=== PATIENT | male | born 1980 | race Caucasian/White ===

== ENCOUNTER 2017-04-07 07:00 | Emergency (ER) | payer BC ==
[2017-04-07] MEDS ORDERED: ASPIRIN 325 MG TABLET PO ONE (07:08)
--- NOTE | 2017-04-07 07:08 | Emergency Department Record ---
History of Present Illness - General Stated Complaint: CHEST PAIN Time Seen by Provider: 04/07/17 07:01 Source: Patient Mode of Arrival: Ambulatory Limitations: No limitations - History of Present Illness Initial Comments: 37 yo male presents with right sided chest pain that started around 11pm last night. He has had a recent cough that is non productive. The cough has been present for 3 days. The pain on the right side is worse with cough, moving, deep breaths. The pain does not radiate. It is worse with pushing on the area or reaching with his arms. If he sits very still the pain is improved. He denies and PMHx. No immediate family history of CAD or PE. No PCP MD Complaint: Chest pain -: Hour(s) (8) Onset: During rest Pain Location: Right chest Pain Radiation: None Severity scale (1-10): 8 Quality: Sharp Consistency: Constant Improves With: Remaining still Worsens With: Inspiration, Movement, Palpation Context: Recent illness (Cough) Other Symptoms: Cough - Related Data Previous Rx's Medication Instructions Recorded Ibuprofen [Motrin 600Mg] 600 mg PO Q8H #20 tablet 04/07/17 Allergies Allergy/AdvReac Type Severity Reaction Status Date / Time diphenhydramine Allergy HIVES Verified 04/07/17 07:08 [From Benadryl] Penicillins Allergy HIVES Verified 04/07/17 07:08 Review of Systems Constitutional: Denies: Chills, Fever, Malaise, Weakness Eyes: Denies: Eye discharge ENT: Denies: Congestion, Ear pain, Hearing loss, Throat pain Respiratory: Reports: Cough. Denies: Dyspnea, Hemoptysis, Stridor, Wheezes Cardiovascular: Reports: Chest pain. Denies: Palpitations, Syncope Endocrine: Denies: Fatigue Gastrointestinal: Denies: Abdominal pain, Diarrhea, Nausea, Vomiting Genitourinary: Denies: Dysuria, Frequency, Hematuria Musculoskeletal: Denies: Arthralgia, Back pain, Joint swelling, Myalgia, Neck pain Skin: Denies: Bruising, Change in color Neurological: Denies: Headache, Numbness, Weakness Psychiatric: Denies: Anxiety Hematological/Lymphatic: Denies: Blood Clots, Easy bleeding, Easy bruising, Swollen glands Physical Exam - General General Appearance: Alert, Oriented x3, Cooperative, No acute distress Limitations: No limitations - Head Head exam: Normal inspection - Eye Eye exam: Normal appearance. negative: Conjunctival injection - ENT ENT exam: Normal exam, Mucous membranes moist Ear exam: Normal external inspection Nasal Exam: Normal inspection Mouth exam: Normal external inspection - Neck Neck exam: Normal inspection, Full ROM. negative: Tenderness - Respiratory Respiratory exam: Normal lung sounds bilaterally, Chest wall tenderness (tender right parasternal area with palpation, reproduces easily). negative: Accessory muscle use, Decreased breath sounds, Respiratory distress, Rhonchi, Stridor, Wheezes - Cardiovascular Cardiovascular Exam: Regular rate, Normal rhythm, Normal heart sounds Peripheral Pulses: 2+: Radial (R), Radial (L) - GI/Abdominal GI/Abdominal exam: Soft. negative: Tenderness - Rectal Rectal exam: Deferred - exam: Deferred - Extremities Extremities exam: Normal inspection, Full ROM, Normal capillary refill. negative: Pedal edema, Tenderness - Back Back exam: Reports: Normal inspection, Full ROM. Denies: Muscle spasm, Rash noted, Tenderness Image of Body Front/Back: 1 - right parasternal is very tender to palpation, left side is non tender. the right side hurts wtih any moving of the right arm, no pain is moves with the left arm. - Neurological Neurological exam: Alert, Normal gait, Oriented X3 - Psychiatric Psychiatric exam: Normal affect, Normal mood. negative: Agitated, Anxious - Skin Skin exam: Dry, Intact, Normal color, Warm Course - Reevaluation(s) Reevaluation #1: EKG NSR rate 59, intervals normal, axis normal, ST NS negative T wave in V1-V2, no ST elevation or depression. No old EKG findings are non specific for tall thin male The patient has pain with breathing, moving, coughing, or any palpation of a very specific point tender area. 04/07/17 07:12 Reevaluation #2: The CBC,CMP,Troponin,D-Dimer, CRP were reviewed. No acute changes on the labs. 04/07/17 07:43 The CXR was read as no acute cardio pulmonary disease 04/07/17 07:59 ESR is negative at 2. 04/07/17 08:00 On recheck the patient is doing much better The pain is still completely reproducible. I can locate the tender area to the right parasternal rib over 2-3 ribs with point tenderness and no point tenderness on the ribs above or below the tender ribs. 04/07/17 08:34 The repeat Troponin is negative for pain that started last night, is very reproducible and atypical DC home with instructions for follow up and reasons to return to the ED 04/07/17 11:01 Reevaluation #3: At DC the pain is still reproducible on palpation consistent with musculo- skeletal in etiology. 04/07/17 11:04 Medical Decision Making - Lab Data Result diagrams: 04/07/17 07:05 04/07/17 07:05 Disposition Disposition: Discharge Clinical Impression: Chest wall pain Disposition: Home, Self-Care Condition: (1) Good Instructions: Chest Pain (ED), Chest Wall Pain (ED) Additional Instructions: Return if worse, short of breath, cough becomes productive or fevers Take motrin every 6 hours for the pain See your doctor for a recheck or return to the ED Prescriptions: Ibuprofen [Motrin 600Mg] 600 mg PO Q8H #20 tablet Time of Disposition: 11:04 Quality - Quality Measures Quality Measures: N/A - Blood Pressure Screening Does Patient Have Any of the Following: No Blood Pressure Classification: Hypertensive Reading Systolic Measurement: 130 Diastolic Measurement: 96 Screening for High Blood Pressure: < Pre-Hypertensive BP, F/U Documented > [ G8950] Pre-Hypertensive Follow-up Interventions: Referral to alternative/primary care provider.
[2017-04-07] MEDS ORDERED: KETOROLAC 30 MG/ML VIAL IVP ONE (07:09)
[2017-04-07 07:18] LABS: BASO % 0.7 % (0-6); EOS % 13.3 % (0-6); GRAN % 56.3 % (47-80); HEMATOCRIT 45.5 % (42.0-52.0); HEMOGLOBIN 15.9 gm/dl (14.0-18.0); LYMPH % 18.5 % (16-45); MEAN CELL VOLUME 88.9 fl (81-97); MEAN CORPUSCULAR HEMOGLOBIN 31.1 pg (27-33); MEAN CORPUSCULAR HGB CONC 34.9 g/dl (32-36); MONO % 11.2 % (0-9); PLATELET COUNT 337 K/uL (130-400); RED BLOOD COUNT 5.12 M/uL (4.40-5.70); RED CELL DISTRIBUTION WIDTH 12.9 % (11.5-14.5); WHITE BLOOD COUNT W/O DIFF 8.9 K/uL (4.2-12.2)
[2017-04-07 07:33] LABS: D-DIMER 0.27 mg/L FEU (0-0.59); INR 0.99; PARTIAL THROMBOPLASTIN TIME 28.3 SECONDS (24.5-39.1); PROTHROMBIN TIME (PATIENT) 10.7 SECONDS (9.5-12.1)
[2017-04-07 07:41] LABS: ALB/GLOB RATIO 1.9 (1.1-1.8); ALBUMIN 4.2 g/dL (4.0-5.0); ALKALINE PHOSPHATASE 49 U/L (40-129); ALT/SGPT 12 U/L (<41); AST/SGOT 17 U/L (10.0-50.0); BLOOD UREA NITROGEN 23.3 mg/dL (12.6-42.6); EST GLOMERULAR FILTRATION RATE > 60 mL/min; GLUCOSE,RANDOM 99 mg/dL (74-109); TOTAL PROTEIN 6.4 g/dL (6.6-8.7)
[2017-04-07 07:42] LABS: TROPONIN I < 0.30 ng/mL (0.00-0.300)
--- NOTE | 2017-04-07 08:27 | RADIOLOGY REPORT ---
EXAM: CHEST, TWO VIEWS HISTORY: MID CHEST PAIN FOR APPROXIMATELY 7-8 HOURS. TECHNIQUE: Upright PA and lateral views of the chest were obtained. Comparison: None. FINDINGS: The cardiomediastinal silhouette is normal in size and configuration. The pulmonary vasculature is normal in caliber. The lungs and pleural spaces are clear. The osseous structures are intact. IMPRESSION: NO RADIOGRAPHIC EVIDENCE OF ACUTE CARDIOPULMONARY DISEASE. JOB NUMBER: [id number] [facility]
[2017-04-07] MEDS ORDERED: METHYLPREDNISOLONE PF 125MG/VIAL IVP ONE (08:34)
[2017-04-07 10:55] LABS: CKMB 1.1 ng/mL (<6.73)
[2017-04-07 10:58] LABS: TROPONIN I < 0.30 ng/mL (0.00-0.300)
== END 2017-04-07 11:55 | disposition home or self-care (01) ==
LOC: ER 07:00
DX: R07.89 Other chest pain (principal); R05 Cough
CPT/HCPCS: 99284 ×2; 96374; 96375; 85025; 85651; 85730; 85610; 86140; 82553; 84484; 80053; 85379; 71020; 93005; 93010; J1885; J2930

== ENCOUNTER 2017-04-08 07:26 | Emergency (ER) | payer BC ==
[2017-04-08] MEDS ORDERED: 0.9 % SODIUM CHLORIDE 1,000 ML BAG IV ONE (07:36)
[2017-04-08] MEDS ORDERED: MORPHINE SULFATE 5 MG/ML PFS IVP ONE (07:36)
--- NOTE | 2017-04-08 07:41 | Emergency Department Record ---
History of Present Illness - General Chief complaint: Pain Stated complaint: CHEST DISCOMFORT/HERE 04/07 Time Seen by Provider: 04/08/17 07:36 Source: Patient Mode of Arrival: Ambulatory Limitations: No limitations - History of Present Illness Initial comments: 37 yo male presents with cough, right sided chest pain, body aches and diarrhea. He was seen in the ED yesterday with a few days of cough and now diarrhea this morning. The pain is with breathing and coughing. The cough started about 3-4 days prior. No fevers. He feels more weak and short of breath today. It hurts his right chest to move, breath, cough or touch a certain area. He is a life long smoker. No history of CAD,PE or DVT. MD Complaint: Other -: Days(s) (1.5) Location: Other Quality: Aching Consistency: Constant Improves with: Immobilization Worsens with: Palpation, Other (coughing or moving) - Related Data Previous Rx's Medication Instructions Recorded Ibuprofen [Motrin 600Mg] 600 mg PO Q8H #20 tablet 04/07/17 Azithromycin [Zithromax] 250 mg PO DAILY #4 tab 04/08/17 Hydrocodone/Acetaminophen [[place] 1 tab PO Q8H PRN #12 tab 04/08/17 5mg/325mg] Prednisone [Prednisone 20Mg] 20 mg PO BID #10 tab 04/08/17 Allergies Allergy/AdvReac Type Severity Reaction Status Date / Time cephalexin [From Keflex] Allergy RASH Verified 04/08/17 09:26 diphenhydramine Allergy HIVES Verified 04/08/17 07:33 [From Benadryl] Penicillins Allergy HIVES Verified 04/08/17 07:33 Review of Systems Constitutional: Reports: Malaise, Weakness. Denies: Chills, Fever Eyes: Denies: Eye discharge ENT: Denies: Congestion Respiratory: Reports: Cough, Dyspnea Cardiovascular: Reports: Chest pain. Denies: Palpitations, Syncope Endocrine: Reports: Fatigue Gastrointestinal: Reports: Diarrhea, Nausea. Denies: Abdominal pain, Vomiting Genitourinary: Denies: Dysuria, Frequency, Hematuria, Urgency Musculoskeletal: Denies: Arthralgia, Back pain, Myalgia, Neck pain Skin: Denies: Bruising, Change in color, Rash Neurological: Denies: Headache, Numbness, Tremors, Vertigo, Weakness Psychiatric: Denies: Anxiety Hematological/Lymphatic: Denies: Blood Clots, Easy bleeding, Easy bruising, Swollen glands Past Medical History - SOCIAL HISTORY Smoking Status: Former smoker Drug Use: None - RESPIRATORY Hx Respiratory Disorders: No - CARDIOVASCULAR Hx Cardio Disorders: No - NEURO Hx Neuro Disorders: No - GI Hx GI Disorders: No - Hx Genitourinary Disorders: No - ENDOCRINE Hx Endocrine Disorders: No - MUSCULOSKELETAL Hx Musculoskeletal Disorders: No - PSYCH Hx Psych Problems: No - HEMATOLOGY/ONCOLOGY Hx Hematology/Oncology Disorders: No Family Medical History Hx Heart Disease: Grandparents Physical Exam - General General Appearance: Alert, Oriented x3, Cooperative, No acute distress Limitations: No limitations - Head Head exam: Normal inspection - Eye Eye exam: Normal appearance, PERRL. negative: Conjunctival injection, Periorbital swelling - ENT ENT exam: Normal exam, Mucous membranes moist Ear exam: Normal external inspection Nasal Exam: Normal inspection Mouth exam: Normal external inspection - Neck Neck exam: Normal inspection. negative: Lymphadenopathy - Respiratory Respiratory exam: Chest wall tenderness (tender along the right sternal border, very reproducible along 2-3 ribs and the rib sternal junction.), Rhonchi. negative: Accessory muscle use, Rales, Wheezes - Cardiovascular Cardiovascular Exam: Regular rate, Normal rhythm, Normal heart sounds - GI/Abdominal GI/Abdominal exam: Soft. negative: Tenderness - Rectal Rectal exam: Deferred - exam: Deferred - Extremities Extremities exam: Normal inspection, Full ROM, Normal capillary refill. negative: Tenderness - Back Back exam: Reports: Normal inspection, Full ROM. Denies: Muscle spasm, Rash noted, Tenderness - Neurological Neurological exam: Alert, Normal gait, Oriented X3 - Psychiatric Psychiatric exam: Normal affect, Normal mood - Skin Skin exam: Dry, Intact, Normal color, Warm Course - Reevaluation(s) Reevaluation #1: EKG 07:33 NSR, rate 72, intervals normal, axis normal, ST no acute changes. No changes from 04/07/17 04/08/17 07:41 Reevaluation #2: The labs were reviewed No acute changes on the labs (CBC,CMP,CRP,Troponin-after over 30 hours of constant atypical pain) The Influenza tests are negative. 04/08/17 08:10 The patient was rechecked after the Duoneb His lung sounds are significantly improved He subjectively feels significant improvement. 04/08/17 08:49 04/08/17 08:[address] scan was read as early changes of emphysema, right lower bronchiolitis with small mucous in the airways and inflammation. With his smoking and coughing this is consistent with acute infection on underlying emphysema. He has responded very positively to the the treatments. Respiratory will see the patient and teach home inhaler use. He is motivated to stop smoking as it has been 4 days. He will be treated with antibiotics, steroids, and inhalers. 04/08/17 09:07 Reevaluation #3: 98% on roomo air. RT has taught the inhaler He is doing very well We have discussed treatment at home He seems very motivated to stop smoking after today's CT findings He has a follow up appointment next week with PCP 04/08/17 09:38 Reevaluation #4: 96% on room air Very comfortable breathing We discussed schedule of home medications again DC much improved with follow up next week 04/08/17 10:07 Medical Decision Making - Lab Data Result diagrams: 04/08/17 07:42 04/08/17 07:42 Disposition Disposition: Discharge Clinical Impression: Chest wall pain, Bronchitis Disposition: Home, Self-Care Condition: (1) Good Instructions: Emphysema (ED) Additional Instructions: Call Dr Pérez for close follow up Return to the ER in the next one day if not feeling much improved Use the inhaler as directed Take the antibiotics daily Take the prednisone twice daily Continue your efforts to stop smoking Prescriptions: Azithromycin [Zithromax] 250 mg PO DAILY #4 tab Hydrocodone/Acetaminophen [[place] 5mg/325mg] 1 tab PO Q8H PRN #12 tab PRN Reason: Pain - General Prednisone [Prednisone 20Mg] 20 mg PO BID #10 tab Forms: Patient Portal Access Time of Disposition: 09:40 Quality - Quality Measures Quality Measures: N/A - Blood Pressure Screening Does Patient Have Any of the Following: No Blood Pressure Classification: Pre-Hypertensive BP Reading Systolic Measurement: 115 Diastolic Measurement: 81 Screening for High Blood Pressure: < Pre-Hypertensive BP, F/U Documented > [ G8950] Pre-Hypertensive Follow-up Interventions: Referral to alternative/primary care provider.
[2017-04-08] MEDS ORDERED: ONDANSETRON HCL IV 4 MG/2 ML VIAL IVP ONE (07:46)
[2017-04-08 07:48] LABS: BASO % 0.2 % (0-6); EOS % 1.3 % (0-6); GRAN % 78.6 % (47-80); HEMATOCRIT 44.2 % (42.0-52.0); HEMOGLOBIN 15.4 gm/dl (14.0-18.0); LYMPH % 11.3 % (16-45); MEAN CELL VOLUME 87.9 fl (81-97); MEAN CORPUSCULAR HEMOGLOBIN 30.6 pg (27-33); MEAN CORPUSCULAR HGB CONC 34.8 g/dl (32-36); MEAN PLATELET VOLUME 8.9 fl (7.4-10.4); MONO % 8.6 % (0-9); PLATELET COUNT 335 K/uL (130-400); RED BLOOD COUNT 5.03 M/uL (4.40-5.70); RED CELL DISTRIBUTION WIDTH 12.9 % (11.5-14.5)
[2017-04-08 08:08] LABS: INFLUENZA A NEGATIVE (NEGATIVE); INFLUENZA B NEGATIVE (NEGATIVE)
[2017-04-08 08:08] LABS: ALB/GLOB RATIO 1.8 (1.1-1.8); ALBUMIN 4.3 g/dL (4.0-5.0); ALKALINE PHOSPHATASE 54 U/L (40-129); ALT/SGPT 14 U/L (<41); AST/SGOT 21 U/L (10.0-50.0); BLOOD UREA NITROGEN 30.6 mg/dL (12.6-42.6); CREATININE 1.1 mg/dL (0.7-1.2); EST GLOMERULAR FILTRATION RATE > 60 mL/min; GLUCOSE,RANDOM 120 mg/dL (74-109); TOTAL PROTEIN 6.7 g/dL (6.6-8.7)
[2017-04-08 08:09] LABS: C-REACTIVE PROTEIN 0.21 mg/L (<5.0)
[2017-04-08] MEDS ORDERED: KETOROLAC 30 MG/ML VIAL IVP ONE (08:16)
[2017-04-08 08:24] LABS: ERYTHROCYTE SEDIMENTATION RATE 2 mm/hr (0-15)
[2017-04-08 08:36] LABS: TROPONIN I < 0.30 ng/mL (0.00-0.300)
[2017-04-08] MEDS: IPRATROPIUM/ALBUTEROL (0.5MG/3MG) NEB INH ONE (08:36)
[2017-04-08] MEDS ORDERED: IPRATROPIUM/ALBUTEROL 4 GM INH INH ONE (09:00)
[2017-04-08] MEDS ORDERED: METHYLPREDNISOLONE PF 125MG/VIAL IVP ONE (09:00)
[2017-04-08] MEDS ORDERED: CEFTRIAXONE SODIUM 1 GM in 0.9 % SODIUM CHLORIDE 100ML 100 ML IVPB ONE (09:00)
[2017-04-08] MEDS ORDERED: ALBUTEROL HFA 8 GM INHALER INH ONE (09:14)
--- NOTE | 2017-04-08 09:15 | CT ANGIOGRAM REPORT ---
EXAM: CT ANGIOGRAM OF THE CHEST HISTORY: MID TO RIGHT SIDED CHEST PAIN FOR THREE DAYS. DIFFICULTY IN BREATHING. COUGH. TECHNIQUE: CT angiogram examination of the chest was performed with 75 ml of Omnipaque 350 contrast utilized. Coronal and sagittal maximum intensity projection reformatted images were generated and reviewed. Comparison: Two view chest radiographic examination dated 04/07/17. FINDINGS: Opacification of the pulmonary arteries is satisfactory for interpretation. No luminal filling defect is noted in the outflow tract, main arteries, lobar arteries, or proximal segmental arteries to suggest acute pulmonary embolic disease. Evaluation of the subsegmental arteries in the lower lungs is limited by motion artifact. The heart is not enlarged. The thoracic aorta is normal in caliber without evidence of dissection. No mediastinal or hilar mass/lymphadenopathy is seen. There is mild thickening of the segmental and subsegmental bronchial valdez of the lower lungs, right greater than left and there is likely a small amount of mucous plugging within the bronchials of the posterior basal segments of the right lower lobe. These findings are suspicious for bronchitis. Minor dependent atelectasis is present in each lung base. Minor linear scarring versus atelectasis also within the posterior lung bases. Mild paraseptal emphysema in the upper lungs associated with biapical lung scarring. The lungs and pleural spaces are otherwise clear. No lytic or blastic bone lesion is seen. There is an 8 mm hypodense lesion within the lateral segment of the left liver lobe having a density of 2 Hounsfield units. This is incompletely imaged. It is likely a benign cyst. The adrenal glands are not enlarged. IMPRESSION: 1. NO CTA EVIDENCE OF AN ACUTE PULMONARY EMBOLUS NOR THORACIC AORTIC DISSECTION. 2. WALL THICKENING OF THE SEGMENTAL AND SUBSEGMENTAL BRONCHI OF THE LOWER LUNGS WITH MUCOUS PLUGGING SUGGESTED WITHIN BRONCHIALS OF THE POSTERIOR BASAL SEGMENT OF THE RIGHT LOWER LOBE. THESE FINDINGS ARE SUSPICIOUS FOR BRONCHIOLITIS. 3. PATCHY OPACITIES IN THE DEPENDENT LUNG BASES CONSISTENT WITH ATELECTASIS OR LESS LIKELY INFILTRATE. A COMPONENT OF SCARRING IN THE BASES WOULD BE DIFFICULT TO EXCLUDE. 4. PARASEPTAL EMPHYSEMA IN THE LUNG APICES ASSOCIATED WITH SCARRING. 5. SMALL INCOMPLETELY IMAGED CYST WITHIN THE LATERAL SEGMENT OF THE LEFT LIVER LOBE. 6. NOT MENTIONED ABOVE ARE SEVERAL TOO SMALL TO CHARACTERIZE HYPODENSE LESIONS SCATTERED WITHIN THE LIVER. IN THE ABSENCE OF A KNOWN MALIGNANT PRIMARY TUMOR AND THE ABSENCE OF KNOWN LIVER DISEASE, THESE ARE LIKELY CYSTS OR HEMANGIOMATA. JOB NUMBER: [id number] [facility]
[2017-04-08] MEDS ORDERED: AZITHROMYCIN 500 MG TABLET PO ONE (09:17)
[2017-04-08] MEDS ORDERED: AZITHROMYCIN 500 MG TABLET PO SCH (10:00)
== END 2017-04-08 10:25 | disposition home or self-care (01) ==
LOC: ER 07:26
DX: J20.9 Acute bronchitis, unspecified (principal); R07.89 Other chest pain; R06.00 Dyspnea, unspecified; R19.7 Diarrhea, unspecified; Z87.891 Personal history of nicotine dependence
CPT/HCPCS: 99284 ×2; 96365; 96375; 85025; 85651; 86140; 84484; 80053; 87400; 71275; 94640; 94664; 93005; 93010; Q9967; J1885; J2405; J2270; J2930; J7030